=== PATIENT | female | born 1965 | race Caucasian/White ===

== ENCOUNTER → 2018-03-13 | Outpatient (CLI) | payer OTHER ==
[2018-03-13 09:55] LABS: BILIRUBIN,URINE NEGATIVE (NEG); CLARITY,URINE CLEAR; COLOR,URINE YELLOW; NITRITE,URINE NEGATIVE (NEG); PROTEIN,URINE NEGATIVE (NEG-TRACE); UROBILINOGEN,URINE 0.2 mg/dL (0.2 mg/dL)
[2018-03-13 10:07] LABS: SQUAMOUS EPITHELIAL CELL,UR FEW /LPF
[2018-03-13 10:08] LABS: RBC,URINE FOBS /HPF (0-2); WBC,URINE >40 /HPF (0-4)
[2018-03-13 10:09] LABS: BACTERIA,URINE MODERATE /HPF (0-FEW)
[2018-03-13 10:12] LABS: ALBUMIN 4.2 g/dL (3.4-5.0); ALBUMIN/GLOBULIN RATIO 1.1 (1.0-1.7); CALCIUM 9.2 mg/dL (8.5-10.1); CREATININE 1.1 mg/dL (0.6-1.0); GFR 52.6; POTASSIUM 4.1 mmol/L (3.5-5.1); TOTAL BILIRUBIN 0.5 mg/dL (0.2-1.0); TOTAL PROTEIN 8.2 g/dL (6.4-8.2)
[2018-03-13 10:13] LABS: CHOLESTEROL/HDL RATIO 4.8
[2018-03-17 08:29] LABS: FECAL OB PT NEGATIVE (NEG)
== END | disposition home or self-care (01) ==
LOC: LAB 09:25
PROVIDERS: ATTEND Family Medicine
DX: Z12.11 Encounter for screening for malignant neoplasm of colon (principal); E78.5 Hyperlipidemia, unspecified; I10 Essential (primary) hypertension; E03.9 Hypothyroidism, unspecified
CPT/HCPCS: 36415; 80053; 80061; 81001; 84436; 84443; 87086

== ENCOUNTER 2018-05-14 08:33 | Emergency (ER) | payer OTHER ==
[~2018-05-14] VITALS: Ht 162.6 cm; Wt 90.7 kg
[2018-05-14 08:42] VITALS: BP 136/62
[2018-05-14] MEDS ORDERED: FLUORESCEIN OPHTH TEST STRIP. OD ONE (09:00)
[2018-05-14] MEDS ORDERED: TETRACAINE 0.5% OPHTH SOLUTION 4ML BOTTLE. OD ONE (09:00)
[2018-05-14] MEDS ORDERED: POLY10DR EACHEYE (09:08)
--- NOTE | 2018-05-14 09:41 | PHYS DOC ---
Past Medical History Past Medical History: High Cholesterol, Hypertension, Hypothyroid Past Surgical History: Hysterectomy, Other Additional Past Surgical Histo: HERNIA Alcohol Use: None Drug Use: None Adult General Chief Complaint Chief Complaint: EYE PROBLEMS HPI HPI Patient is a 52 year old female who presents with right eye symptoms. Patient had onset of watering, crustiness, and discharge with some irritation yesterday afternoon after she awoke. No other family members have been having similar symptoms. She does not have significant pain. No loss of vision. No fever. Review of Systems Review of Systems Constitutional: Denies fever Eyes: Denies change in visual acuity, HENT: Denies Respiratory: Denies cough or shortness of breath Cardiovascular: No additional information not addressed in HPI Musculoskeletal: Denies back pain Integument: Denies rash Neurologic: Denies headache All other systems were reviewed and found to be within normal limits, except as documented in this note. Current Medications Current Medications Current Medications Medications (Trade) Dose Ordered Sig/Tomer Start Time Stop Time Status Last Admin Dose Admin Fluorescein Sodium (Ful-Nathalie) 1 strip 1X ONCE 05/14/18 09:00 05/14/18 09:01 DC 05/14/18 08:50 1 STRIP Tetracaine HCl (Tetracaine) 1 drop 1X ONCE 05/14/18 09:00 05/14/18 09:01 DC 05/14/18 08:50 1 DROP Allergies Allergies Allergies Coded Allergies Type Severity Reaction Last Updated Verified No Known Drug Allergies 05/14/18 No Physical Exam Physical Exam Constitutional: Well developed, well nourished, no acute distress, non-toxic appearance HENT: Normocephalic, atraumatic, bilateral external ears normal, oropharynx moist Eyes: PERRLA, EOMI, conjunctival injection extending to the limbus Neck: Normal range of motion Skin: Warm, dry, no erythema, no rash Neurologic: Alert and oriented X 3 Psychologic: Affect normal Current Patient Data Vital Signs Vital Signs Date Time Temp Pulse Resp B/P (MAP) Pulse Ox O2 Delivery O2 Flow Rate FiO2 05/14/18 08:42 98.3 70 16 136/62 (86) 99 Room Air 98.3 EKG EKG [] Radiology/Procedures Radiology/Procedures [] Course & Med Decision Making Course & Med Decision Making Pertinent Labs and Imaging studies reviewed. (See chart for details) Patient is seen and examined shortly after arrival to her room. Tetracaine and fluorescein are used. Slit lamp exam is completed. The lids are normal other than some mild swelling and erythema. The lacrimal ducts are normal. The anterior chamber is clear and free from cell or flare. There is no corneal abrasion seen. The conjunctiva is injected with some clear discharge. Patient is examined today and found to have conjunctivitis. 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 She is discharged home with Polytrim eyedrops. Return to the ER for any new or worsening symptoms. Dragon Disclaimer Dragon Disclaimer This electronic medical record was generated, in whole or in part, using a voice recognition dictation system. Departure Departure Impression: Primary Impression: Conjunctivitis Disposition: 01 HOME, SELF-CARE Condition: GOOD Patient Instructions: Conjunctivitis (Viral and Bacterial) Scripts Polymyxin B Sulf/Trimethoprim (POLYTRIM EYE DROPS) 10 Ml Drops 1 DROP EACHEYE Q3H, #10 ML Prov: NORTH ONEILL DO 05/14/18 NORTH ONEILL DO May 14, 2018 09:41
== END 2018-05-14 09:18 | disposition home or self-care (01) ==
LOC: ER 08:33
DX: H10.9 Unspecified conjunctivitis (principal); I10 Essential (primary) hypertension; E78.00 Pure hypercholesterolemia, unspecified; E03.9 Hypothyroidism, unspecified
CPT/HCPCS: 99283

== ENCOUNTER → 2019-07-19 | Outpatient (CLI) | payer OTHER ==
[~2019-07-19] MED LIST: POLY10DR EACHEYE
[2019-07-19 10:13] LABS: ALBUMIN 3.8 g/dL (3.4-5.0); ALBUMIN/GLOBULIN RATIO 1.1 (1.0-1.7); GFR 58.2; POTASSIUM 4.1 mmol/L (3.5-5.1); TOTAL BILIRUBIN 0.3 mg/dL (0.2-1.0); TOTAL PROTEIN 7.3 g/dL (6.4-8.2)
[2019-07-19 10:15] LABS: CHOLESTEROL/HDL RATIO 4.8
[2019-07-19 10:37] LABS: BILIRUBIN,URINE SMALL (NEG); CLARITY,URINE CLEAR; COLOR,URINE YELLOW; NITRITE,URINE NEGATIVE (NEG); PROTEIN,URINE NEGATIVE (NEG-TRACE); UROBILINOGEN,URINE 0.2 mg/dL (0.2 mg/dL)
[2019-07-19 11:08] LABS: BACTERIA,URINE FEW /HPF (0-FEW)
[2019-07-19 11:09] LABS: HYALINE CASTS, URINE FEW /HPF; SQUAMOUS EPITHELIAL CELL,UR FEW /LPF
== END | disposition home or self-care (01) ==
LOC: LAB 09:30
PROVIDERS: ATTEND Family Medicine
DX: E03.9 Hypothyroidism, unspecified (principal); E78.5 Hyperlipidemia, unspecified; I10 Essential (primary) hypertension
CPT/HCPCS: 36415; 80053; 80061; 81001; 84436; 84443; 87086

== ENCOUNTER → 2019-08-12 | Day surgery (SDC) | payer OTHER ==
[~2019-08-12] MED LIST changes: +BUPR450T3 PO; +HYDROmorphone 2 MG/ML VIAL IV PRN; +IV RINGERS,LACTATED 1000ML 1,000 ML IV ONE; +IV RINGERS,LACTATED 1000ML 1,000 ML IV SCH; +LEVO125T70 PO; +LIDOCAINE 1% PF 2 ML VIAL. ID PRN; +LIDOCAINE 2% PF 5 ML VIAL. ONE; +LISI-334 PO; +MORPHINE SULFATE 2 MG/ML VIAL. IV PRN; +ONDANSETRON PF 4 MG/2 ML VIAL. IV PRN; +PRAV40TA2 PO; +PROCHLORPERAZINE 10 MG/2 ML VIAL. IV PRN; +PROPOFOL 40 ML IV ONE; +fentaNYL PF VIAL 100 MCG/2 ML VIAL IV PRN
[2019-08-12 13:25] VITALS: BP 105/58
--- NOTE | 2019-08-20 10:55 | PDOC1 ---
History and Physical Date of Admission Date of Admission DATE: 08/12/19 TIME: 10:53 Identification/Chief Complaint Chief Complaint Colon cancer screening Source Source: Patient History of Present Illness History of Present Illness 54-year-old female is never had a colonoscopy denies any colon problems at this time in for colon cancer screening Past Medical History Cardiovascular: No pertinent hx Pulmonary: No pertinent hx GI: No pertinent hx Heme/Onc: No pertinent hx Hepatobiliary: No pertinent hx Psych: No pertinent hx Rheumatologic: No pertinent hx Infectious disease: No pertinent hx ENT: No pertinent hx Renal/: No pertinent hx Endocrine: No pertinent hx Dermatology: No pertinent hx Past Surgical History Past Surgical History: No pertinent history Family History Family History: No Significant Social History Smoke: No ALCOHOL: none Current Medications Current Medications Current Medications Ringer's Solution 1,000 ml @ 75 mls/hr 1X ONCE IV Last administered on 08/12/19at 11:24; Start 08/12/19 at 09:15; Stop 08/12/19 at 22:34; Status DC Ondansetron HCl (Zofran) 4 mg PRN Q6HRS PRN IV NAUSEA/VOMITING; Start 08/12/19 at 10:00; Stop 08/13/19 at 09:59; Status DC Fentanyl Citrate (Fentanyl 2ml Vial) 25 mcg PRN Q5MIN PRN IV MILD PAIN 1-3; Start 08/12/19 at 10:00; Stop 08/13/19 at 09:59; Status DC Fentanyl Citrate (Fentanyl 2ml Vial) 50 mcg PRN Q5MIN PRN IV MODERATE TO SEVERE PAIN; Start 08/12/19 at 10:00; Stop 08/13/19 at 09:59; Status DC Morphine Sulfate (Morphine Sulfate) 1 mg PRN Q10MIN PRN IV SEVERE PAIN 7-10; Start 08/12/19 at 10:00; Stop 08/13/19 at 09:59; Status DC Ringer's Solution 1,000 ml @ 30 mls/hr Q24H IV ; Start 08/12/19 at 09:52; Stop 08/12/19 at 21:51; Status DC Lidocaine HCl (Xylocaine-Mpf 1% 2ml Vial) 2 ml PRN 1X PRN ID PRIOR TO IV START; Start 08/12/19 at 10:00; Stop 08/13/19 at 09:59; Status DC Hydromorphone HCl (Dilaudid) 0.5 mg PRN Q10MIN PRN IV SEV PAIN, Second choice; Start 08/12/19 at 10:00; Stop 08/13/19 at 09:59; Status DC Prochlorperazine Edisylate (Compazine) 5 mg PACU PRN PRN IV NAUSEA, MRX1; Start 08/12/19 at 10:00; Stop 08/13/19 at 09:59; Status DC Propofol 40 ml @ As Directed STK-MED ONCE IV ; Start 08/12/19 at 10:46; Stop 08/12/19 at 10:46; Status DC Lidocaine HCl (Lidocaine Pf 2% Vial) 5 ml STK-MED ONCE .ROUTE ; Start 08/12/19 at 10:46; Stop 08/12/19 at 10:46; Status DC Active Scripts Active Polytrim Eye Drops (Polymyxin B Sulf/Trimethoprim) 10 Ml Drops 1 Drop EACHEYE Q3H Reported Pravastatin Sodium 40 Mg Tablet 40 Mg PO DAILY Bupropion Xl (Bupropion HCl) 450 Mg Tab.er.24h 450 Mg PO DAILY Levo-T (Levothyroxine Sodium) 125 Mcg Tablet 125 Mcg PO DAILY Lisinopril 20 Mg Tablet 20 Mg PO DAILY Allergies Allergies: Coded Allergies: No Known Drug Allergies (Unverified , 08/12/19) Physical Exam General: Alert, Oriented X3, Cooperative, No acute distress HEENT: Atraumatic, PERRLA, EOMI Lungs: Clear to auscultation Heart: RRR, no murmurs Abdomen: Normal bowel sounds, Soft, No tenderness Rectal Exam: not examined Extremities: No edema Skin: No significant lesion Neuro: Normal speech Psych/Mental Status: Mental status NL Vitals Vitals Vital Signs Date Time Temp Pulse Resp B/P (MAP) Pulse Ox O2 Delivery O2 Flow Rate FiO2 08/12/19 13:25 63 20 105/58 98 Room Air 08/12/19 12:55 97.5 97.5 VTE Prophylaxis Ordered VTE Prophylaxis Devices: No VTE Pharmacological Prophylaxi: No Assessment/Plan Assessment/Plan Colon cancer screening colonoscopy CHITO STEINER MD Aug 20, 2019 10:55
== END ==
LOC: ENDOS 10:59
PROVIDERS: ATTEND Surgery
DX: Z12.11 Encounter for screening for malignant neoplasm of colon (principal); K57.30 Diverticulosis of large intestine without perforation or abscess without bleeding
CPT/HCPCS: 45378; J2001; J2704

== ENCOUNTER → 2020-01-31 | Outpatient (CLI) | payer OTHER ==
[2019-08-12 13:25] VITALS: BP 105/58
[~2020-01-31] MED LIST changes: -HYDROmorphone 2 MG/ML VIAL IV PRN; -IV RINGERS,LACTATED 1000ML 1,000 ML IV ONE; -IV RINGERS,LACTATED 1000ML 1,000 ML IV SCH; -LIDOCAINE 1% PF 2 ML VIAL. ID PRN; -LIDOCAINE 2% PF 5 ML VIAL. ONE; -MORPHINE SULFATE 2 MG/ML VIAL. IV PRN; -ONDANSETRON PF 4 MG/2 ML VIAL. IV PRN; -PROCHLORPERAZINE 10 MG/2 ML VIAL. IV PRN; -PROPOFOL 40 ML IV ONE; -fentaNYL PF VIAL 100 MCG/2 ML VIAL IV PRN
== END | disposition home or self-care (01) ==
LOC: LAB 10:45
PROVIDERS: ATTEND Internal Medicine Pulmonary Disease
DX: U07.1 COVID-19 (principal); R50.9 Fever, unspecified; R19.7 Diarrhea, unspecified; R11.2 Nausea with vomiting, unspecified
CPT/HCPCS: U0003-CS

== ENCOUNTER → 2020-08-16 | Outpatient (CLI) | payer OTHER ==
[2019-08-12 13:25] VITALS: BP 105/58
[~2020-08-16] MED LIST changes: -LISI-334 PO; +LISI20TA18 PO
[2020-08-16 11:15] LABS: BILIRUBIN,URINE NEGATIVE (NEG); CLARITY,URINE CLEAR; COLOR,URINE YELLOW; NITRITE,URINE NEGATIVE (NEG); PROTEIN,URINE NEGATIVE (NEG-TRACE); UROBILINOGEN,URINE 0.2 mg/dL (0.2 mg/dL)
[2020-08-16 11:22] LABS: ALBUMIN 3.7 g/dL (3.4-5.0); CALCIUM 8.4 mg/dL (8.5-10.1); POTASSIUM 4.3 mmol/L (3.5-5.1); TOTAL BILIRUBIN 0.4 mg/dL (0.2-1.0); TOTAL PROTEIN 7.3 g/dL (6.4-8.2)
[2020-08-16 11:26] LABS: CHOLESTEROL/HDL RATIO 3.9
[2020-08-16 11:55] LABS: BACTERIA,URINE FEW /HPF (0-FEW); RBC,URINE 0 /HPF (0-2)
== END ==
LOC: LAB 10:18
PROVIDERS: ATTEND Family Medicine
DX: Z12.11 Encounter for screening for malignant neoplasm of colon (principal); E78.5 Hyperlipidemia, unspecified; E03.9 Hypothyroidism, unspecified
CPT/HCPCS: 36415; 80053; 80061; 81001; 84436; 84443; 87086

== ENCOUNTER → 2021-09-21 | Outpatient (CLI) | payer OTHER ==
[2019-08-12 13:25] VITALS: BP 105/58
[2021-09-21 11:32] LABS: BACTERIA,URINE MANY /HPF (0-FEW)
[2021-09-21 11:33] LABS: RBC,URINE OCC /HPF (0-2)
[2021-09-21 11:37] LABS: ALBUMIN 3.8 g/dL (3.4-5.0); CALCIUM 8.6 mg/dL (8.5-10.1); CREATININE 0.9 mg/dL (0.6-1.0); GFR 65.2; POTASSIUM 4.1 mmol/L (3.5-5.1); TOTAL BILIRUBIN 0.5 mg/dL (0.2-1.0); TOTAL PROTEIN 7.5 g/dL (6.4-8.2)
[2021-09-21 11:40] LABS: CHOLESTEROL/HDL RATIO 3.6
[2021-09-21 11:47] LABS: FREE T4 1.11 ng/dL (0.76-1.46); THYROID STIM HORMONE (TSH) 1.117 uIU/mL (0.358-3.74)
[2021-09-21 23:08] LABS: THYROXINE 9.5 ug/dL (4.5-12.0)
== END ==
LOC: LAB 10:38
PROVIDERS: ATTEND Family Medicine
DX: Z12.11 Encounter for screening for malignant neoplasm of colon (principal); E03.9 Hypothyroidism, unspecified; E78.6 Lipoprotein deficiency; I10 Essential (primary) hypertension; R73.01 Impaired fasting glucose
CPT/HCPCS: 36415; 80053; 80061; 81001; 83036; 83721; 84436; 84439; 84443; 87077; 87086; 87186